=== PATIENT | male | born 1965 | race Caucasian/White ===

== ENCOUNTER 2021-02-06 10:13 | Emergency (ER) | payer OTHER, SELFPAY ==
[2021-02-06 10:26] VITALS: BP 178/96; PULSE 93; RESP 16; TEMP 36.8; O2SAT 100
--- NOTE | 2021-02-06 11:14 | ED.SKABFB ---
HPI - Skin/Abscess/Foreign Bdy General Chief complaint: Skin/Abscess/Foreign Body Stated complaint: joe eyes redness/swelling Time Seen by Provider: 02/06/21 11:14 Source: patient Mode of arrival: ambulatory Limitations: no limitations History of Present Illness HPI narrative: Evin Bowen is a 55 yo male with no PMH who comes to [facility] with bilateral eye swelling and rash. States that this started last Monday when he was outside working and people were burning things around him he states that his face and neck are paretic and that the rashes spread across his face and to the back of his neck but not any further on his body, Ihis eyes started to get puffy on Monday night. Patient denies any nausea, vomiting, diarrhea denies any known allergic response, the rash is coalesced papules rash on both sides of face and neck Related Data Allergies Allergy/AdvReac Type Severity Reaction Status Date / Time No Known Allergies Allergy Unknown Verified 02/06/21 11:00 Review of Systems Review of Systems: CONSTITUTIONAL: Denies fever, chills, sweats. EYES: Denies visual changes, redness, discharge. ENT: Denies rhinorrhea, congestion, sore throat, otalgia. CARDIOVASCULAR: Denies chest pain, palpitations, edema. RESPIRATORY: Denies dyspnea, wheezing, cough GASTROINTESTINAL: Denies abdominal pain, nausea, vomiting, diarrhea. GENITOURINARY: Denies dysuria, hematuria, abnormal discharge SKIN: Rash on face and puffy eyes NEUROLOGIC: Denies numbness, or focal weakness. PSYCHIATRIC: Denies anxiety or depression. PMFSH Past Medical History Medical History Elevated blood pressure reading in office without diagnosis of hypertension Social History Social History (Updated 02/06/21 @ 11:28 by Ramya Armstrong CNP) Smoking packs per day: 1 Smoking cigarettes per day: 20.0 Smoking status: Current every day smoker Tobacco type: cigarettes Alcohol intake: current Comments At time of signature, I agree with nursing past medical, surgical, social and family history. There is no relevant family history pertinent to the presenting complaint. BP iselevated- needs to follow up with PCP Exam Narrative: GENERAL: This is a well-nourished, well-developed patient, in mild distress. HEAD: normocephalic, atraumatic. EYES: Sclera clear/white. Vision is grossly intact. EARS: External ears normal,. Hearing grossly intact. NOSE: External nose normal without nasal discharge, nares without redness, no rhinorrhea. THROAT: Mucous membranes moist, NECK: Neck supple, non-tender with rash on bilateral sides CARDIOVASCULAR: Regular rate and rhythm without murmurs, gallops, or rubs. RESPIRATORY: Clear to auscultation. Breath sounds equal bilaterally. No wheezes, rales, or rhonchi. GASTROINTESTINAL: Abdomen soft, SKIN: warm, intact with large papular rash on bilateral sides of face and eyes are puffy, conjunctivae not injected NEURO: awake, alert, and oriented to person, place and time. There were no obvious focal neurologic abnormalities. Steady gait EXTREMITIES: Normal range of motion. BACK: Nontender without deformity Course Course Emergency Course: Patient comes with rash all over her face with puffy eyes Given Depo-Medrol Medrol IM here Started on Medrol Dosepak with Pepcid and Benadryl Patient's blood pressure is also elevated for the second time (seen in ER last year and it was elevated, told to follow-up but didn't)-started on lisinopril with follow-up to his PCP which he does have Vital Signs Vital signs: Vital Signs Temperature 98.3 F 02/06/21 10:26 Pulse Rate 93 02/06/21 10:26 Respiratory Rate 16 02/06/21 10:26 Blood Pressure 178/96 H 02/06/21 10:26 Pulse Oximetry 100 02/06/21 10:26 Temperature 98.3 F 02/06/21 10:26 Pulse Rate 93 02/06/21 10:26 Respiratory Rate 16 02/06/21 10:26 Blood Pressure 178/96 H 02/06/21 10:26 Pulse Oximetry 100 02/06/21 10:
[2021-02-06] MEDS: methylPREDNISolone ACETATE 80 MG/ML VIAL IM (11:45)
== END 2021-02-06 11:50 | disposition home or self-care (01) ==
PROVIDERS: Emergency Provider Nurse Practitioner; PCP Family Medicine Adolescent Medicine
DX: L23.7 Allergic contact dermatitis due to plants, except food (principal); R22.0 Localized swelling, mass and lump, head; F17.210 Nicotine dependence, cigarettes, uncomplicated
CPT/HCPCS: 96372; 99213; G0463; J1040

== ENCOUNTER 2022-05-17 16:35 | Emergency (ER) | payer OTHER, SELFPAY ==
[2022-05-17 16:44] VITALS: BP 157/81; PULSE 116; RESP 12; TEMP 36.8; O2SAT 100
--- NOTE | 2022-05-17 16:48 | ED.BACK ---
HPI - Back Pain/Injury General Chief Complaint: Back Pain/Injury Stated Complaint: back/leg pain Time Seen by Provider: 05/17/22 16:48 Source: patient, RN notes reviewed and old records reviewed Mode of arrival: ambulatory Limitations: no limitations History of Present Illness HPI Narrative: 57-year-old male presents to the [facility] with complaints of right lower back pain radiating into his leg. No trauma. Pain is worse with movement, changing positions. No bruising, swelling. Denies any loss retention of bowel or bladder. Denies any trauma. No midline tenderness. No numbness or tingling in extremities Related Data Allergies Allergy/AdvReac Type Severity Reaction Status Date / Time No Known Allergies Allergy Unknown Verified 05/17/22 16:51 Review of Systems Review of Systems: All systems reviewed & are unremarkable except as noted in HPI and below Constitutional: Constitutional: Reports no additional constitutional complaints Eyes: Eyes: Reports no additional eye complaints ENT: Reports system reviewed and no additional complaints, except as documented Cardiovascular: Cardiovascular: Reports no additional cardiovascular complaints, Denies chest pain and Denies dyspnea Respiratory: Respiratory: Reports no additional respiratory complaints, Denies chest congestion, Denies cough and Denies dyspnea Gastrointestinal: Gastrointestinal: Reports no additional gastrointestinal complaints, Denies abdominal pain, Denies nausea and Denies vomiting Musculoskeletal: Musculoskeletal: Reports as per HPI Integumentary/Breasts: Skin/Breast: Reports system reviewed and no additional complaints, except as docu Neurologic: Reports system reviewed and no additional complaints, except as documented Psychiatric: Psychiatric: Reports no additional psychiatric complaints Allergic/Immunologic: Allergic/Immunologic: Reports no additional allergic/immunologic complaints PMFSH Past Medical History Medical History Elevated blood pressure reading in office without diagnosis of hypertension Social History Social History Smoking packs per day: 1 Smoking cigarettes per day: 20.0 Smoking status: Current every day smoker Tobacco type: cigarettes Alcohol intake: current Comments At the time of my signature, I reviewed and agree with the nursing past medical, surgical, social, and family history. There is no relevant family history pertinent to the patient complaint. Exam Const: General: cooperative, healthy appearing, comfortable, no acute distress, well developed, alert and well nourished Nutritional Appearance: well nourished Orientation/consciousness: patient oriented x3 Limitations: no limitations HENMT: Head: normal to inspection Ears: hearing grossly normal bilaterally and external ears normal Face/Nose/Sinus: Normal external nose present, Normal nares present, Normal nasal mucous membranes and turbinates present and normal facial exam Face and sinus: normal facial exam Mouth: Yes Normal oral and palatal mucosa present, Yes lip normal and Yes moist mucous membranes Eyes: General: appearance normal, both eyes and all related structures Alignment and Position: alignment normal Periorbital: periorbital findings normal Conjunctivae: conjunctivae normal Pupils: Equal, round and reactive pupils present EOM: EOMs intact bilaterally Neck: Neck: normal visual inspection, full ROM, no lymphadenopathy and no meningeal signs Chest: Chest palpation & inspection: normal inspection of the chest Resp: Effort & Inspection: normal respiratory effort and able to speak in complete sentences Auscultation: clear to auscultation bilaterally, no crackles, no rales, no rhonchi and no wheezes Cardio: Rate: regular rate Rhythm: regular rhythm Back/Spine/Pelvis: Back: no CVA tenderness Cervical Spine: cervical ROM normal Thoracic
== END 2022-05-17 16:59 | disposition home or self-care (01) ==
PROVIDERS: Emergency Provider Nurse Practitioner; PCP Family Medicine Adolescent Medicine
DX: S39.012A Strain of muscle, fascia and tendon of lower back, initial encounter (principal); X58.XXXA Exposure to other specified factors, initial encounter; F17.210 Nicotine dependence, cigarettes, uncomplicated

== ENCOUNTER 2023-07-26 19:09 | Emergency (ER) | payer OTHER, SELFPAY ==
--- NOTE | ~2023-07-26 | XR_ITS ---
EXAMINATION: XR hip LT min 2V DATE: 07/26/2023 20:17 INDICATION: Left hip pain TECHNIQUE: Anteroposterior and frog-leg lateral views of the left hip were obtained. COMPARISON: CT dated 08/31/2017 FINDINGS: Bone alignment is normal. There is subtle flattening of the superolateral aspect of the left femoral head with 1 mm step-off of the anterosuperior cortex on the frog-leg lateral projection. This most li anais represents progression of previously seen osteonecrosis now with some collapse of the articular cortex. Left hip joint space is relatively preserved. No other fractures identified. Mild lumbar spon dylosis and mild bilateral sacroiliac osteoarthritis. Atherosclerotic calcification along the left co mmon femoral artery. IMPRESSION: 1. Mild collapse of the articular cortex at the cephalad aspect of the left femoral head consistent w ith progression of previously seen osteonecrosis. Reviewed, dictated and finalized at location A. IMPRESSION: 1. Mild collapse of the articular cortex at the cephalad aspect of the left fem oral head consistent with progression of previously seen osteonecrosis.
[2023-07-26 19:21] VITALS: BP 132/66; PULSE 101; RESP 17; TEMP 37.2; O2SAT 99
--- NOTE | 2023-07-26 19:36 | ED.LOWEXIN ---
HPI - Extremity Injury (Lower) General Chief Complaint: Extremity Injury, Lower Stated Complaint: L/R Hip/Feet Numbness/Pain Source: patient Mode of arrival: ambulatory Limitations: no limitations History of Present Illness HPI Narrative: 58-year-old male presented for complaint of left hip pain radiating to the thigh over the past 3 weeks. He states the pain is worse today, unable to tolerate weight bearing. Endorses a history of falling, but is unsure of his last fall. States he may have fallen 1 month or 3 months ago. Endorses occasional numbness or tingling to the feet for several months. Has not taken anything for pain, states I drink instead. Denies weakness of the lower extremities, saddle paresthesia or loss of bowel or bladder. Related Data Allergies Allergy/AdvReac Type Severity Reaction Status Date / Time No Known Allergies Allergy Unknown Verified 05/17/22 16:51 Review of Systems Review of Systems: CONSTITUTIONAL: Denies body aches, fever, chills EYES: Denies visual changes CARDIOVASCULAR: Denies chest pain, palpitations, or edema. RESPIRATORY: Denies cough or dyspnea. GASTROINTESTINAL: Denies abdominal pain, nausea, vomiting, or diarrhea. SKIN: Denies rash, itching, or wounds. MUSCULOSKELETAL: reports back pain NEUROLOGIC: Denies headache, reports numbness, tingling to feet All systems reviewed & are unremarkable except as noted in HPI and below PMFSH Past Medical History Medical History Elevated blood pressure reading in office without diagnosis of hypertension Social History Social History (Updated 07/26/23 @ 21:21 by Priya Cooley APRN) Smoking packs per day: 1 Smoking cigarettes per day: 20.0 Smoking status: Current every day smoker Tobacco type: cigarettes Alcohol intake: current Alcohol use details: 10 shots of vodka and 2 beers daily Comments At time of signature, I have reviewed and agree with nursing past medical, surgical, social and family history unless otherwise noted. Please see nursing chart for further information. There is no relevant family history pertinent to the presenting complaint Exam Narrative: GENERAL: appears in pain CHEST: Speaks in full sentences. No respiratory distress. HEART: Regular rate and rhythm. Normal and equal peripheral pulses. MUSC: Left posterior hip tender with palpation. No Vertebral point tenderness. limited range of motion at left hip endorses pain with flexion. No ecchymosis, No open wounds, or obvious deformity; alignment normal, BLEs with normal strength and sensation, pulse palpable and equal bilaterally, skin warm, dry, pink. Capillary refill less than 3 seconds. Gait unsteady, pain with weight bearing. SKIN: Warm, dry, no rash. NEURO: Alert and oriented x3. Course Course Emergency Course: Patient is aware of diagnosis, understands and agrees to treatment plan. Anticipatory guidance given. Patient agrees to follow-up as directed and is aware of reasons to seek care at the emergency department. Portions of this record may have been created with voice recognition software Level of Care: Express Care Visit Vital Signs Vital signs: Vital Signs Temperature 99.0 F 07/26/23 19:21 Pulse Rate 101 H 07/26/23 19:21 Respiratory Rate 17 07/26/23 19:21 Blood Pressure 132/66 07/26/23 19:21 Pulse Oximetry 99 07/26/23 19:21 Oxygen Delivery Room Air 07/26/23 19:21 Temperature 99.0 F 07/26/23 19:21 Pulse Rate 101 H 07/26/23 19:21 Respiratory Rate 17 07/26/23 19:21 Blood Pressure 132/66 07/26/23 19:21 Pulse Oximetry 99 07/26/23 19:21 Oxygen Delivery Room Air 07/26/23 19:21 Reviewed MDM - Extremity Injury (Lower) MDM Narrative Medical decision making narrative: Results of x-ray reviewed with patient. Discussed physical exam findings. Advised supportive measures and signs/symptoms to go to the ER. Pt is appropriate f
[2023-07-26] MEDS: methylPREDNISolone SOD SUCC 125 MG VIAL IM (20:39)
== END 2023-07-26 20:57 | disposition home or self-care (01) ==
PROVIDERS: Emergency Provider Nurse Practitioner Family; PCP Family Medicine Adolescent Medicine
DX: M25.552 Pain in left hip (principal); F17.210 Nicotine dependence, cigarettes, uncomplicated
CPT/HCPCS: 73502; 96372; 99213; G0463; J2919

== ENCOUNTER 2023-08-31 15:44 | Emergency (ER) | payer OTHER, SELFPAY ==
--- NOTE | 2023-08-31 15:48 | ECG_ITS ---
Test Date: 2023-08-31 16:04:01 Measurements Intervals [place] Rate: 108 P: 79 NV: 138 QRS: 75 QRSD: 90 T: 72 QT: 342 QTc: 459 Interpretive Statements SINUS TACHYCARDIA WITH FREQUENT SUPRAVENTRICULAR PREMATURE COMPLEXES ABNORMAL RHYTHM ECG No previous ECG available for comparison Electronically Signed On 09-01-2023 07:21:17 CDT by Jarrett Sexton M.D.
--- NOTE | 2023-08-31 15:48 | ED.CHESTPAIN ---
HPI - Chest Pain General Chief Complaint: Chest Pain Stated Complaint: chest pain Time Seen by Provider: 08/31/23 15:48 Source: patient Mode of arrival: ambulatory Limitations: no limitations History of Present Illness HPI narrative: Evin is a 58-year-old male patient presenting to the clinic today with complaints of epigastric/ruq abdomen pain that began 1 week ago. He states that the pain is constant and has gotten worse over the last 3-4 days. He is a current tobacco user and drinks alcohol daily 2 beers and 10 shots of vodka . Is also reports dizziness. Has taking some pepto so he is unsure if he is passing blood in his stool. Denies any associated SOB. Related Data Home Medications Medication Instructions Recorded Confirmed No Home Medications 08/31/23 08/31/23 Allergies Allergy/AdvReac Type Severity Reaction Status Date / Time No Known Allergies Allergy Unknown Verified 08/31/23 15:47 Review of Systems Review of Systems: Pertinent positives per HPI. Patient denies any fever, chills, rash, headache, visual changes, dizziness, cough, runny nose, sore throat, shortness of breath, palpitations, nausea, vomiting, diarrhea, constipation,or any urinary issues. [facility] Past Medical History Medical History Elevated blood pressure reading in office without diagnosis of hypertension Social History Social History Smoking packs per day: 1 Smoking cigarettes per day: 20.0 Smoking status: Current every day smoker Tobacco type: cigarettes Alcohol intake: current Alcohol use details: 10 shots of vodka and 2 beers daily Comments At the time of my signature, I reviewed and agree with the nursing past medical, surgical, social, and family history. There is no relevant family history pertinent to the patient complaint. Exam Narrative: General: Well-developed, well nourished, in no apparent distress Head: Normocephalic, atraumatic. Cardio: Regular rate and rhythm, s1 and s2 normal, no murmur appreciated. Resp: Clear to auscultation bilaterally, no rhonchi, rales, wheezing or rubs. Abdomen: Soft, pliable, nondistended, tenderness to palpation over the epigastrium and the right upper quadrant, no organomegaly, no CVAT tenderness Extremities: No deformity, no edema, no cyanosis, capillary refill less than 2 seconds, peripheral pulses palpable and strong. Integumentary: [place], warm, and dry, intact without lesion, no rashes. Course Course Emergency Course: Portions of this record may have been created with voice recognition software. Level of Care: Express Care Visit Vital Signs Vital signs: Vital Signs Temperature 37.2 C 08/31/23 16:05 Pulse Rate 103 H 08/31/23 16:05 Respiratory Rate 18 08/31/23 16:05 Blood Pressure 166/84 H 08/31/23 16:05 Pulse Oximetry 100 08/31/23 16:05 Oxygen Delivery Room Air 08/31/23 16:05 Temperature 37.2 C 08/31/23 16:05 Pulse Rate 103 H 08/31/23 16:05 Respiratory Rate 18 08/31/23 16:05 Blood Pressure 166/84 H 08/31/23 16:05 Pulse Oximetry 100 08/31/23 16:05 Oxygen Delivery Room Air 08/31/23 16:05 Vital signs reviewed MDM - Chest Pain MDM Narrative Medical decision making narrative: At the time of visit patient is resting comfortably on the exam table. Patient appears to be nontoxic. EKG: EKG shows sinus tachycardia with frequent PVCs with heart rate of 108 beats per minute. No ST elevation, depression, T-wave inversion noted. Plan: Recommend transfer to the ER for further evaluation. Patient would like to be transfer to [facility]. Contacted Dr. Hernandez at [facility] and he accepts patient for transfer. Will allow patient to be transferred via private car with family members. Differential Diagnosis Differential diagnosis: Likely fracture of rib, atypical chest jerrod
[2023-08-31 16:05] VITALS: BP 166/84; PULSE 103; RESP 18; TEMP 37.2; O2SAT 100
== END 2023-08-31 16:15 | disposition short-term general hospital (02) ==
LOC: EXPCOLL 15:49
PROVIDERS: Emergency Provider Nurse Practitioner Family; PCP Family Medicine Adolescent Medicine
DX: R10.13 Epigastric pain (principal); R10.11 Right upper quadrant pain; R94.31 Abnormal electrocardiogram [ECG] [EKG]; F17.210 Nicotine dependence, cigarettes, uncomplicated
CPT/HCPCS: 93005; 99213; G0463

== ENCOUNTER → 2023-10-09 09:42 | Outpatient (CLI) | payer OTHER, SELFPAY ==
--- NOTE | ~2023-10-09 | XR_ITS ---
Left Shoulder Technique: AP and axillary views were obtained. Clinical History: Pain Findings: No fracture or dislocation is seen. Osseous alignment is anatomic. The glenohumeral and acr omioclavicular joint spaces are preserved. Soft tissues are unremarkable. Impression: Unremarkable left shoulder radiographs. Reviewed, dictated and finalized at [facility]. Impression: Unremarkable left shoulder radiographs.
--- NOTE | ~2023-10-09 | XR_ITS ---
XR chest 2V Ordering provider: Parvez Parker MD History: 58 years Male with . COUGH, SMOKER X 35 YRS 1PPD . Comparison: September 01, 2017 FINDINGS: MEDIASTINUM: The cardiac silhouette is not enlarged. Prominent roxy. LUNGS: No infiltrates, effusions or pneumothorax. Emphysematous changes of the lungs. Small nodule or nipple shadow seen in the right lower lobe area. Repeat exam with nipple marker advised. OTHER: No free air under the diaphragm. IMPRESSION: No acute cardiopulmonary pathology. Reviewed, dictated and finalized at location A.
--- NOTE | ~2023-10-09 | XR_ITS ---
XR hip LT min 2V 10/09/2023 10:20 Indication: Chronic left hip pain Procedure: 2 views left hip Comparison: 07/26/2023 Findings: there is mild osteoarthritis of the left hip. There is cortical irregularity along the sple en or lateral margin of the left femoral head with minimal depression, consistent with subchondral fr acture secondary to osteonecrosis. No significant interval change from prior examination. Impression: 1: Stable subchondral fracture left femoral head secondary to underlying osteonecrosis. Reviewed, dictated and finalized at location B. Impression: 1: Stable subchondral fracture left femoral head secondary to underlying osteon ecrosis.
--- NOTE | ~2023-10-09 | XR_ITS ---
Right Shoulder Technique: AP and scapular Y views were obtained. Clinical History: Pain Findings: No fracture or dislocation is seen. Osseous alignment is anatomic. The glenohumeral joint i s intact. There is moderate AC joint degenerative change. Probable focal calcific tendinitis of the d istal rotator cuff insertion region. Impression: Probable focal calcific tendinitis at the distal rotator cuff insertion. Moderate AC joint degenerative change. Reviewed, dictated and finalized at location . Impression: Probable focal calcific tendinitis at the distal rotator cuff insertion. Moderate AC joint degenerative change.
== END ==
PROVIDERS: PCP Emergency Medicine; Visit Provider Emergency Medicine
DX: M19.011 Primary osteoarthritis, right shoulder (principal); S72.092A Other fracture of head and neck of left femur, initial encounter for closed fracture; X58.XXXA Exposure to other specified factors, initial encounter
CPT/HCPCS: 71046; 73030; 73502

== ENCOUNTER → 2023-10-20 10:26 | Outpatient (CLI) | payer OTHER, SELFPAY ==
--- NOTE | ~2023-10-20 | XR_ITS ---
EXAMINATION: XR chest 2V 10/20/2023 10:47 INDICATION: Nipple marker placement because of shadows on prior examination PROCEDURE: 2 view chest COMPARISON: 10/09/2023 FINDINGS: The lungs are clear. The cardiomediastinal silhouette is within normal limits. There are no pleural effusions. There is no pneumothorax suspected. Prominent nipple shadows correspond to ni pple markers. IMPRESSION: 1: NO ACUTE CARDIOPULMONARY DISEASE. Reviewed, dictated and finalized at location B.
== END ==
PROVIDERS: PCP Emergency Medicine; Visit Provider Emergency Medicine
DX: R91.8 Other nonspecific abnormal finding of lung field (principal)
CPT/HCPCS: 71046

== ENCOUNTER 2023-11-20 09:43 | Outpatient (CLI) | payer MEDICAID, SELFPAY ==
[2023-11-20 10:41] LABS: Cholesterol 114 mg/dL (0-200); HDL Direct 61 mg/dL; Triglycerides 72 mg/dL (<150)
[2023-11-20 10:52] LABS: LDL Cholesterol Direct 43 mg/dL
== END 2023-11-20 09:44 | disposition home or self-care (01) ==
LOC: ANHIMG 09:49 → ANHLAB 09:55
PROVIDERS: PCP Emergency Medicine; Visit Provider Emergency Medicine
DX: E78.5 Hyperlipidemia, unspecified (principal)
CPT/HCPCS: 36415; 80061

== ENCOUNTER 2023-11-22 09:33 | Outpatient (CLI) | payer MEDICAID, SELFPAY ==
--- NOTE | ~2023-11-22 | CT_ITS ---
CT Scan of the Chest without Contrast: Clinical Indication: Lung cancer screening, nicotine dependence Technique: Contiguous sections were acquired throughout the chest without intravenous contrast. Dose reduction technique was used on this scan by utilizing automated exposure control and iterative recon struction technique. The dose-length product (DLP) was 75.10 mGy-cm. Findings: There is no evidence of any significant mediastinal, hilar or axillary lymphadenopathy. The mediastin al soft tissues appear normal. There is no evidence of pleural or pericardial effusion. There is biapical scarring. 4 mm right lower lobe pulmonary nodule present (axial image 101). Images through the upper abdomen reveal no abnormalities. Impression: Lung RADS 2: Benign appearance. 12 month follow-up screening CT advised. Reviewed, dictated and finalized at location . Impression: Lung RADS 2: Benign appearance. 12 month follow-up screening CT advised.
== END 2023-11-22 09:34 | disposition home or self-care (01) ==
LOC: MICIMG 09:34
PROVIDERS: PCP Emergency Medicine; Visit Provider Emergency Medicine
DX: Z12.2 Encounter for screening for malignant neoplasm of respiratory organs (principal); Z87.891 Personal history of nicotine dependence
CPT/HCPCS: 71271

== ENCOUNTER 2024-03-09 11:59 | Outpatient (CLI) | payer OTHER, SELFPAY ==
[2024-03-09 12:30] LABS: Hemoglobin 12.4 g/dL (14.0-18.0); Mean Corpuscular HGB Conc 33.5 g/dl (32-36); Mean Corpuscular Hemoglobin 33.6 pg (26-34); Mean Corpuscular Volume 100.3 fl (80-100); Mean Platelet Volume 9.1 fl (7.4-10.4); Platelet Count Result 211 k/mm3 (150-375); Red Blood Count 3.69 M/mm3 (4.6-6.20); Red Cell Distribution Width 12.7 % (11.5-14.5); White Blood Count 7.3 K/mm3 (4.5-10.0)
[2024-03-09 12:48] LABS: Anion Gap 4 mmol/L (4-12); Blood Urea Nitrogen 8 mg/dL (9-20); Calcium 8.9 mg/dL (8.4-10.2); Carbon Dioxide 30 mmol/L (22-30); Chloride 103 mmol/L (98-107); Estimated Glomerular Filt Rate > 60; Glucose 101 mg/dL (65-110); Magnesium 1.2 mg/dL (1.6-2.3); Potassium 3.1 mmol/L (3.4-5.0); Sodium 137 mmol/L (137-145)
[2024-03-09 13:06] LABS: Add Urine Microscopic? NO; Appearance Urine Clear (Clear); Bilirubin Urine Negative (Negative); Blood Urine Negative (Negative); Color Urine Yellow (Yellow); Glucose Urine UA Negative (Negative); Ketones Urine Negative (Negative); Leukocyte Esterase Ur Negative LEU/UL (Negative); Nitrate Urine Negative (Negative); Protein Urine Negative (Negative); Specific Grav Ur 1.007 (1.001-1.035); Urobilinogen Urine 0.2 mg/dL (<2.0)
[2024-03-09 13:52] LABS: Folic Acid 15.2 ng/mL (2.76->20)
== END 2024-03-09 12:00 | disposition home or self-care (01) ==
LOC: ANHLAB 12:01
PROVIDERS: PCP Emergency Medicine; Visit Provider Emergency Medicine
DX: K52.9 Noninfective gastroenteritis and colitis, unspecified (principal); Z00.00 Encounter for general adult medical examination without abnormal findings
CPT/HCPCS: 36415; 80048; 81003; 82607; 82746; 83735; 85027